=== PATIENT | male | born 1960 | race African-American/Black ===

== ENCOUNTER 2017-05-18 12:41 | Emergency (ER) | payer OTHER ==
[~2017-05-18] VITALS: Ht 177.8 cm; Wt 126.9 kg
[~2017-05-18 12:41] MED LIST: FLEXERIL10 MG PO; TYLENOL WITH C1 EACH PO
[2017-05-18 13:16] LABS: HEMATOCRIT 32.4 % (38.0-50.0); MCH 26.8 PG (29.0-34.0); MCHC 33.3 G/DL (30.0-36.0); MCV 80.4 FL (86-99); MEAN PLAT.VOLUME 10.7 uM^3 (9.0-12.4); PLATELET COUNT 168 K/uL (156-360); RBC DIS.WIDTH-CV 13.2 % (11.8-14.6); RBC DIS.WIDTH-SD 38.4 % (39-53); RED BLOOD COUNT 4.03 M/uL (4.00-5.50); WHITE BLOOD COUNT 7.2 K/uL (4.1-10.2)
[2017-05-18 13:26] LABS: CHLORIDE 105 mEq/L (99-109); POTASSIUM 4.1 mEq/L (3.7-5.4); SODIUM 139 mEq/L (136-147)
[2017-05-18 13:28] LABS: GLUCOSE 123 mg/dL (70-99)
[2017-05-18 13:29] LABS: ANION GAP 11 MEQ/L (2-14)
[2017-05-18 13:32] LABS: GFR ESTIMATE (CALCULATED) 22 mL/min/
[2017-05-18 13:33] LABS: UREA NITROGEN (BUN) 42 mg/dL (9-23)
[2017-05-18 13:38] LABS: TROP-I INTERPRETATION NEGATIVE; TROPONIN-I < 0.01 ng/mL (0.0-0.30)
[2017-05-18 14:22] LABS: MAGNESIUM 2.6 mg/dL (1.3-2.7)
[2017-05-18 15:32] VITALS: BP 135/64
== END 2017-05-18 15:35 | disposition left against medical advice (07) ==
LOC: EME 12:41
DX: R07.9 Chest pain, unspecified (principal); E78.5 Hyperlipidemia, unspecified; E11.9 Type 2 diabetes mellitus without complications; I11.0 Hypertensive heart disease with heart failure; I50.9 Heart failure, unspecified; Z95.0 Presence of cardiac pacemaker; Z87.891 Personal history of nicotine dependence; Z79.84 Long term (current) use of oral hypoglycemic drugs
CPT/HCPCS: 71020; 80048; 83735; 83880; 84484; 85027; 93005; 99281; 99284